=== PATIENT | male | born 1995 | race African-American/Black ===

== ENCOUNTER 2017-11-06 12:01 | Emergency (ER) | payer OTHER ==
[~2017-11-06] VITALS: Ht 185.4 cm; Wt 103.2 kg
[2017-11-06 12:03] VITALS: BP 157/91
[2017-11-06] MEDS ORDERED: OXYMETAZOLINE NASAL SPRAY 0.05%, 15ML ONE (12:30)
[2017-11-06] MEDS ORDERED: OXYMETAZOLINE NASAL SPRAY 0.05%, 15ML NAS ONE (12:30)
[2017-11-06] MEDS ORDERED: IBUPROFEN 800 MG TABLET ONE (13:47)
[2017-11-06] MEDS ORDERED: IBUPROFEN 200 MG TABLET PO ONE (14:00)
== END 2017-11-06 13:59 | disposition home or self-care (01) ==
LOC: ED 13:24
DX: S02.2XXA Fracture of nasal bones, initial encounter for closed fracture (principal); Y04.0XXA Assault by unarmed brawl or fight, initial encounter; Y93.89 Activity, other specified; Y92.89 Other specified places as the place of occurrence of the external cause; Y99.8 Other external cause status
CPT/HCPCS: 70486; 99284

== ENCOUNTER 2018-02-13 21:18 | Emergency (ER) | payer OTHER ==
[~2018-02-13] VITALS: Ht 188 cm; Wt 101.2 kg
[2018-02-13 21:21] VITALS: BP 154/85
[2018-02-13] MEDS ORDERED: LORazepam 1MG TABLET PO ONE (22:30)
[2018-02-13] MEDS ORDERED: LORazepam 1MG TABLET ONE (22:58)
== END 2018-02-14 00:02 | disposition home or self-care (01) ==
LOC: ED 23:15
DX: R06.00 Dyspnea, unspecified (principal); F41.1 Generalized anxiety disorder; I10 Essential (primary) hypertension; F17.200 Nicotine dependence, unspecified, uncomplicated
CPT/HCPCS: 71046; 93005; 99284